=== PATIENT | female | born 1960 | race African-American/Black ===

== ENCOUNTER 2020-03-19 11:30 | Emergency (ER) | payer OTHER ==
[~2020-03-19] VITALS: Ht 160 cm; Wt 65.9 kg
[~2020-03-19 11:30] MED LIST: FERR324T4 PO; TRAM50TA2 PO
[2020-03-19] MEDS ORDERED: KETOROLAC TROMETHAMINE 60 MG/2 ML VIAL IM ONE (12:00)
[2020-03-19 12:44] VITALS: BP 133/78
== END 2020-03-19 12:56 | disposition home or self-care (01) ==
LOC: EMS 11:30
DX: G44.209 Tension-type headache, unspecified, not intractable (principal); F17.210 Nicotine dependence, cigarettes, uncomplicated; F14.90 Cocaine use, unspecified, uncomplicated; Z90.710 Acquired absence of both cervix and uterus
CPT/HCPCS: 96372; 99283; 99406; J1885